=== PATIENT | male | born 1965 | race Hispanic/Latino ===

== ENCOUNTER 2023-04-13 07:21 | Inpatient (IN) | payer OTHER, SELFPAY ==
[2023-04-13] MEDS ORDERED: Ondansetron PF 4 MG/2 ML Vial ONE (07:32)
[2023-04-13] MEDS ORDERED: Morphine 4 MG/ML VIAL ONE ×3 (07:32→20:39)
[2023-04-13] MEDS ORDERED: HYDROmorphone 0.5 MG/0.5 ML SYRINGE ONE (08:13)
[2023-04-13 08:17] LABS: ALT (SGPT) 389 U/L (8-55); AST (SGOT) 277 U/L (5-34); Albumin 4.2 g/dL (3.5-5.0); Alkaline Phosphatase 95 U/L (40-110); Anion Gap 21 mmol/L (10-20); BUN (Urea Nitrogen) 7 mg/dL (8.4-25.7); Calc. Creatinine Clearance 0 mL/min (70-130); Calcium 8.9 mg/dL (7.8-10.44); Carbon Dioxide 19 mmol/L (22-29); Chloride 100 mmol/L (98-107); Estimated GFR 93; Globulin 3.1 g/dL (2.4-3.5); Glucose 174 mg/dL (70-105); Magnesium 1.8 mg/dL (1.6-2.6); Potassium 4.3 mmol/L (3.5-5.1); Protein, Total 7.3 g/dL (6.0-8.3); Sodium 136 mmol/L (136-145)
[2023-04-13 08:30] LABS: Lipase 1768 U/L (8-78)
[2023-04-13 08:31] LABS: Hematocrit 49.3 % (38.8-50.0); Mean Corpuscular HGB CONC 36.5 g/dL (32.0-36.0); Mean Corpuscular Hemoglobin 35.6 pg (27.0-33.0); Mean Corpuscular Volume 97.4 fl (81.2-95.1); Mean Platelet Volume 9.3 fl (7.4-10.4); Platelet Count 213 10x3/uL (150-450); RBC Distribution Width 11.6 % (11.5-14.5); Red Blood Cell (RBC) Count 5.06 10x6/uL (4.32-5.72); White Blood Cell (WBC) Count 13.5 10x3/uL (3.5-10.5)
[2023-04-13 08:32] LABS: MDiff Complete? YES
[2023-04-13] MEDS ORDERED: Senokot S 8.6-50 MG TAB ONE (08:35)
[2023-04-13 08:37] LABS: Band 2 % (5-11); Lymphocytes 4 % (21-51); Monocytes 2 % (0-10); Neutrophil 92 % (42-75)
[2023-04-13 08:39] LABS: Manual Diff?? YES
[2023-04-13 08:41] LABS: Platelet Adequacy Comment Appears Adequate
[2023-04-13] MEDS ORDERED: Promethazine HCl 25 MG/ML VIAL IM PRN (08:54)
[2023-04-13] MEDS ORDERED: Ondansetron PF 4 MG/2 ML Vial IVP PRN (08:54)
[2023-04-13] MEDS ORDERED: Sodium Chloride 0.9% 1,000 ML IV SCH (09:00)
[2023-04-13] MEDS: Sodium Chloride 0.9% 1,000 ML IV SCH ×4 (11:32→22:50)
[2023-04-13] MEDS: Morphine 4 MG/ML VIAL SLOW IVP PRN ×2 (16:32→20:40)
[2023-04-13] MEDS ORDERED: Meropenem 1 GM in Sodium Chloride 0.9% 100 ML IVPB SCH (17:00)
[2023-04-13] MEDS ORDERED: Meropenem 1 GM VIAL ONE (18:44)
[2023-04-13] MEDS ORDERED: Amlodipine 5 MG TAB PO SCH (21:15)
[2023-04-13] MEDS ORDERED: Amlodipine 5 MG TAB ONE (21:26)
[2023-04-13] MEDS ORDERED: hydrALAZINE 20 MG/ML VIAL ONE (23:14)
[2023-04-13] MEDS: hydrALAZINE 20 MG/ML VIAL SLOW IVP PRN (23:18)
[2023-04-14] MEDS ORDERED: Morphine 4 MG/ML VIAL ONE ×2 (00:37→09:42)
[2023-04-14] MEDS ORDERED: Meropenem 1 GM VIAL ONE ×2 (00:37→09:23)
[2023-04-14] MEDS: Morphine 4 MG/ML VIAL SLOW IVP PRN ×2 (00:40→10:16)
[2023-04-14] MEDS: Meropenem 1 GM in Sodium Chloride 0.9% 100 ML IVPB SCH ×3 (00:48→18:08)
[2023-04-14] MEDS ORDERED: hydrALAZINE 20 MG/ML VIAL ONE ×2 (03:12→07:39)
[2023-04-14] MEDS: hydrALAZINE 20 MG/ML VIAL SLOW IVP PRN ×2 (03:22→07:45)
[2023-04-14] MEDS: Sodium Chloride 0.9% 1,000 ML IV SCH ×3 (03:50→18:07)
[2023-04-14 04:29] LABS: #Eosinphils 0.2 10x3/uL (0.0-0.5); #Monocytes 0.8 10x3/uL (0.0-1.1); #Neutrophils 13.6 10x3/uL (1.5-8.4); %Basophils 0.1 % (0.0-2.0); %Eosinophils 1.2 % (0.0-6.0); %Lymphocytes 4.4 % (18.0-47.0); %Monocytes 4.9 % (0.0-10.0); %Neutrophils 88.6 % (40.0-75.0); Hematocrit 46.4 % (38.8-50.0); Hemoglobin 16.7 g/dL (13.5-17.5); Mean Corpuscular Hemoglobin 34.9 pg (27.0-33.0); Mean Corpuscular Volume 97.1 fl (81.2-95.1); Mean Platelet Volume 9.2 fl (7.4-10.4); Platelet Count 164 10x3/uL (150-450); RBC Distribution Width 11.5 % (11.5-14.5); Red Blood Cell (RBC) Count 4.78 10x6/uL (4.32-5.72); White Blood Cell (WBC) Count 15.4 10x3/uL (3.5-10.5)
[2023-04-14 04:49] LABS: ALT (SGPT) 226 U/L (8-55); AST (SGOT) 129 U/L (5-34); Albumin 3.5 g/dL (3.5-5.0); Alkaline Phosphatase 63 U/L (40-110); Anion Gap 12 mmol/L (10-20); BUN (Urea Nitrogen) 7 mg/dL (8.4-25.7); Bilirubin, Total 2.2 mg/dL (0.2-1.2); Calc. Creatinine Clearance 117 mL/min (70-130); Calcium 8.2 mg/dL (7.8-10.44); Carbon Dioxide 22 mmol/L (22-29); Chloride 103 mmol/L (98-107); Estimated GFR 107; Globulin 2.9 g/dL (2.4-3.5); Glucose 107 mg/dL (70-105); Potassium 3.9 mmol/L (3.5-5.1); Protein, Total 6.4 g/dL (6.0-8.3); Sodium 133 mmol/L (136-145)
[2023-04-14] MEDS ORDERED: hydrALAZINE 25 MG TAB ONE (09:22)
[2023-04-14] MEDS ORDERED: Metoprolol Tartrate 25 MG TAB ONE (09:23)
[2023-04-14] MEDS: hydrALAZINE 25 MG TAB PO SCH ×3 (09:50→22:11)
[2023-04-14] MEDS: NIFEdipine XL 60 MG ER.TAB PO SCH (09:51)
[2023-04-14] MEDS: Metoprolol Tartrate 25 MG TAB PO SCH ×2 (09:51→22:10)
[2023-04-14] MEDS: Acetaminophen 325 MG TAB PO PRN (18:20)
[2023-04-15] MEDS: Meropenem 1 GM in Sodium Chloride 0.9% 100 ML IVPB SCH ×3 (01:11→16:40)
[2023-04-15] MEDS: Acetaminophen 325 MG TAB PO PRN ×3 (01:19→19:04)
[2023-04-15 04:23] LABS: #Monocytes 0.7 10x3/uL (0.0-1.1); #Neutrophils 11.3 10x3/uL (1.5-8.4); %Basophils 0.1 % (0.0-2.0); %Monocytes 5.9 % (0.0-10.0); %Neutrophils 89.2 % (40.0-75.0); Hematocrit 39.3 % (38.8-50.0); Hemoglobin 13.9 g/dL (13.5-17.5); Mean Corpuscular HGB CONC 35.4 g/dL (32.0-36.0); Mean Corpuscular Hemoglobin 34.2 pg (27.0-33.0); Mean Corpuscular Volume 96.6 fl (81.2-95.1); Mean Platelet Volume 9.4 fl (7.4-10.4); Platelet Count 124 10x3/uL (150-450); RBC Distribution Width 11.1 % (11.5-14.5); Red Blood Cell (RBC) Count 4.07 10x6/uL (4.32-5.72); White Blood Cell (WBC) Count 12.6 10x3/uL (3.5-10.5)
[2023-04-15 04:29] LABS: ALT (SGPT) 127 U/L (8-55); AST (SGOT) 74 U/L (5-34); Alkaline Phosphatase 49 U/L (40-110); Anion Gap 10 mmol/L (10-20); BUN (Urea Nitrogen) 13 mg/dL (8.4-25.7); Bilirubin, Total 2.4 mg/dL (0.2-1.2); Calc. Creatinine Clearance 122 mL/min (70-130); Carbon Dioxide 23 mmol/L (22-29); Chloride 103 mmol/L (98-107); Estimated GFR 109; Globulin 2.6 g/dL (2.4-3.5); Glucose 108 mg/dL (70-105); Potassium 3.5 mmol/L (3.5-5.1); Protein, Total 5.6 g/dL (6.0-8.3); Sodium 132 mmol/L (136-145)
[2023-04-15] MEDS: Sodium Chloride 0.9% 1,000 ML IV SCH ×4 (05:49→15:28)
[2023-04-15] MEDS: NIFEdipine XL 60 MG ER.TAB PO SCH (09:30)
[2023-04-15] MEDS: Metoprolol Tartrate 25 MG TAB PO SCH ×2 (09:32→20:56)
[2023-04-15] MEDS: hydrALAZINE 25 MG TAB PO SCH (09:36)
[2023-04-15] MEDS ORDERED: Ipratropium/Albuterol 3 ML NEB NEB PRN (12:13)
[2023-04-15] MEDS ORDERED: Ibuprofen 400 MG TAB PO PRN (14:14)
[2023-04-15] MEDS: Ibuprofen 200 MG TAB PO PRN (20:56)
[2023-04-16] MEDS: Meropenem 1 GM in Sodium Chloride 0.9% 100 ML IVPB SCH ×3 (01:11→17:09)
[2023-04-16] MEDS: Acetaminophen 325 MG TAB PO PRN (01:11)
[2023-04-16] MEDS: Sodium Chloride 0.9% 1,000 ML IV SCH ×3 (01:12→21:50)
[2023-04-16 04:18] LABS: ALT (SGPT) 87 U/L (8-55); AST (SGOT) 43 U/L (5-34); Albumin 2.8 g/dL (3.5-5.0); Alkaline Phosphatase 45 U/L (40-110); Anion Gap 9 mmol/L (10-20); BUN (Urea Nitrogen) 12 mg/dL (8.4-25.7); Bilirubin, Total 1.6 mg/dL (0.2-1.2); Calc. Creatinine Clearance 134 mL/min (70-130); Calcium 7.8 mg/dL (7.8-10.44); Carbon Dioxide 23 mmol/L (22-29); Chloride 105 mmol/L (98-107); Estimated GFR 112; Globulin 2.7 g/dL (2.4-3.5); Glucose 109 mg/dL (70-105); Potassium 3.1 mmol/L (3.5-5.1); Protein, Total 5.5 g/dL (6.0-8.3); Sodium 134 mmol/L (136-145)
[2023-04-16 04:25] VITALS: BMI 22.9
[2023-04-16 04:36] LABS: #Monocytes 0.7 10x3/uL (0.0-1.1); #Neutrophils 8.2 10x3/uL (1.5-8.4); %Basophils 0.1 % (0.0-2.0); %Eosinophils 0.1 % (0.0-6.0); %Lymphocytes 7.9 % (18.0-47.0); %Monocytes 6.7 % (0.0-10.0); %Neutrophils 84.7 % (40.0-75.0); Hematocrit 36.2 % (38.8-50.0); Hemoglobin 13.1 g/dL (13.5-17.5); Mean Corpuscular HGB CONC 36.2 g/dL (32.0-36.0); Mean Corpuscular Hemoglobin 35.2 pg (27.0-33.0); Mean Corpuscular Volume 97.3 fl (81.2-95.1); Mean Platelet Volume 9.9 fl (7.4-10.4); Platelet Count 127 10x3/uL (150-450); RBC Distribution Width 11.1 % (11.5-14.5); Red Blood Cell (RBC) Count 3.72 10x6/uL (4.32-5.72); White Blood Cell (WBC) Count 9.7 10x3/uL (3.5-10.5)
[2023-04-16] MEDS ORDERED: Fentanyl 250 MCG/5 ML VIAL ONE (08:26)
[2023-04-16] MEDS ORDERED: Midazolam HCl 2 mg/2 ml Vial ONE (08:26)
[2023-04-16] MEDS ORDERED: PROPOFOL 20 ML ONE (08:26)
[2023-04-16] MEDS ORDERED: Lidocaine 2% PF 5 ML VIAL ONE (08:26)
[2023-04-16] MEDS ORDERED: Rocuronium Bromide 10 MG/ML (10ML VIAL) ONE (08:26)
[2023-04-16] MEDS ORDERED: SUCCINYLCHOLINE/SOD CL,ISO/PF 200 MG/10 ML SYRINGE FS ONE (09:01)
[2023-04-16] MEDS ORDERED: PHENYLEPHRINE-NS 100 MCG/ML 10 ML SYRINGE ONE (09:01)
[2023-04-16] MEDS ORDERED: EPINEPHrine 1 MG/ML VIAL ONE (09:13)
[2023-04-16] MEDS ORDERED: Bupivacaine PF 0.5% 30 ML VIAL ONE (09:14)
[2023-04-16] MEDS ORDERED: Iopamidol 30 ML ONE (09:18)
[2023-04-16] MEDS ORDERED: Glucagon 1 MG/ML KIT ONE (09:18)
[2023-04-16] MEDS ORDERED: CEFAZOLIN 1 GM VIAL ONE (09:54)
[2023-04-16] MEDS ORDERED: SUGAMMADEX SODIUM 200 MG/2 ML VIAL ONE (10:09)
[2023-04-16] MEDS: Metoprolol Tartrate 25 MG TAB PO SCH ×2 (13:47→21:48)
[2023-04-16] MEDS: Potassium Chloride 20 MEQ in Premix 1 BAG IVPB SCH ×2 (13:58→17:08)
[2023-04-16] MEDS: Ibuprofen 200 MG TAB PO PRN (17:08)
[2023-04-17] MEDS: Meropenem 1 GM in Sodium Chloride 0.9% 100 ML IVPB SCH ×3 (00:29→17:21)
[2023-04-17 03:55] LABS: #Monocytes 0.6 10x3/uL (0.0-1.1); #Neutrophils 7.8 10x3/uL (1.5-8.4); %Basophils 0.2 % (0.0-2.0); %Eosinophils 0.4 % (0.0-6.0); %Monocytes 6.7 % (0.0-10.0); %Neutrophils 86.1 % (40.0-75.0); Hematocrit 35.1 % (38.8-50.0); Hemoglobin 12.8 g/dL (13.5-17.5); Mean Corpuscular HGB CONC 36.5 g/dL (32.0-36.0); Mean Corpuscular Hemoglobin 35.6 pg (27.0-33.0); Mean Corpuscular Volume 97.5 fl (81.2-95.1); Mean Platelet Volume 9.5 fl (7.4-10.4); Platelet Count 152 10x3/uL (150-450); RBC Distribution Width 10.9 % (11.5-14.5); White Blood Cell (WBC) Count 9.1 10x3/uL (3.5-10.5)
[2023-04-17 04:04] LABS: Anion Gap 11 mmol/L (10-20); BUN (Urea Nitrogen) 11 mg/dL (8.4-25.7); Calc. Creatinine Clearance 138 mL/min (70-130); Calcium 7.8 mg/dL (7.8-10.44); Carbon Dioxide 21 mmol/L (22-29); Chloride 109 mmol/L (98-107); Estimated GFR 113; Glucose 115 mg/dL (70-105); Potassium 3.1 mmol/L (3.5-5.1); Sodium 138 mmol/L (136-145)
[2023-04-17] MEDS: Morphine 4 MG/ML VIAL SLOW IVP PRN ×2 (06:22→12:43)
[2023-04-17] MEDS ORDERED: HYDROcodone/Acetaminophen 5/325 mg Tablet PO PRN ×2 (07:18)
[2023-04-17] MEDS: Sodium Chloride 0.9% 1,000 ML IV SCH ×2 (07:30→20:44)
[2023-04-17] MEDS ORDERED: Potassium Chloride 20 MEQ in Premix 1 BAG IVPB SCH (08:00)
[2023-04-17 08:10] LABS: ALT (SGPT) 94 U/L (8-55); AST (SGOT) 134 U/L (5-34); Albumin 2.7 g/dL (3.5-5.0); Alkaline Phosphatase 97 U/L (40-110); Bilirubin, Direct 0.8 mg/dL (0.1-0.3); Bilirubin, Total 1.5 mg/dL (0.2-1.2); Protein, Total 5.4 g/dL (6.0-8.3)
[2023-04-17] MEDS: Metoprolol Tartrate 25 MG TAB PO SCH ×2 (09:43→22:05)
[2023-04-17] MEDS ORDERED: Ibuprofen 600 MG TAB PO SCH (14:00)
[2023-04-17] MEDS: Ibuprofen 200 MG TAB PO PRN (23:18)
[2023-04-18 04:50] LABS: ALT (SGPT) 103 U/L (8-55); AST (SGOT) 81 U/L (5-34); Albumin 2.7 g/dL (3.5-5.0); Alkaline Phosphatase 110 U/L (40-110); Bilirubin, Direct 0.5 mg/dL (0.1-0.3); Protein, Total 5.7 g/dL (6.0-8.3)
[2023-04-18] MEDS: Meropenem 1 GM in Sodium Chloride 0.9% 100 ML IVPB SCH ×2 (05:48→08:20)
[2023-04-18] MEDS: Metoprolol Tartrate 25 MG TAB PO SCH (08:21)
[2023-04-18 12:26] VITALS: BP 168/84; TEMP 99.1
== END 2023-04-18 14:25 | disposition home or self-care (01) | DRG 417 ==
LOC: CSHERS 07:21 → CSHERHOLD 09:03 → CSHPED 04-14 12:22 → CSHTELE 04-15 15:43
PROVIDERS: ADMIT Internal Medicine; ATTEND Internal Medicine
PROC: 0FT44ZZ Resection of Gallbladder, Percutaneous Endoscopic Approach (ICD-10-PCS; principal; 2023-04-16)
PROC: BF101ZZ Fluoroscopy of Bile Ducts using Low Osmolar Contrast (ICD-10-PCS; 2023-04-16)
PROC: 3E033XZ Introduction of Vasopressor into Peripheral Vein, Percutaneous Approach (ICD-10-PCS; 2023-04-16)
DX: K80.43 Calculus of bile duct with acute cholecystitis with obstruction (principal); K85.11 Biliary acute pancreatitis with uninfected necrosis; F10.10 Alcohol abuse, uncomplicated; I10 Essential (primary) hypertension
CPT/HCPCS: 36415; 47532; 74181; 76705; 80048; 80053; 80076; 82248; 83690; 83735; 84478; 85025; 88304; 93306; 96374; 96375; C1889; J0171; J0360; J0690; J1170; J1611; J2001; J2185; J2250; J2270; J2405; J2704; J3010; J3480; J3490; J7050; Q9967; S0020